=== PATIENT | female | born 1985 | race Two or more races ===

== ENCOUNTER 2018-08-16 07:36 | Day surgery (SDC) | payer OTHER ==
[~2018-08-16 07:36] MED LIST: LOSARTAN-HCTZ1 EAC2 PO
[2018-08-16] MEDS ORDERED: ELIQUIS2.5 MG PO (13:12)
[2018-08-16] MEDS ORDERED: PERCOCET 5-3251 EACH PO (13:12)
[2018-08-16] MEDS ORDERED: DUI500 PO (13:12)
== END 2018-08-16 18:30 | disposition home or self-care (01) ==
LOC: CIR.AMB 07:36
DX: S86.012A Strain of left Achilles tendon, initial encounter (principal); S90.02XA Contusion of left ankle, initial encounter

== ENCOUNTER 2023-02-05 08:10 | Outpatient (CLI) | payer OTHER ==
[~2023-02-05 08:10] MED LIST changes: +DUI500 PO; +ELIQUIS2.5 MG PO; +PERCOCET 5-3251 EACH PO
== END 2023-02-05 08:17 | disposition home or self-care (01) ==
LOC: RAD 08:10
PROVIDERS: ATTEND Orthopaedic Surgery
DX: Z03.818 Encounter for observation for suspected exposure to other biological agents ruled out (principal); Z20.828 Contact with and (suspected) exposure to other viral communicable diseases; Z20.822 Contact with and (suspected) exposure to COVID-19; M35.81 Multisystem inflammatory syndrome